=== PATIENT | female | born 1945 | race American Indian/Alaskan Native ===

== ENCOUNTER 2017-04-10 17:17 | Emergency (ER) | payer MEDICARE, OTHER ==
[2017-04-10 18:26] LABS: Basophils % (Auto) 0.6 % (0.0-1.8); Eosinophils % (Auto) 0.3 % (0.0-4.3); Hemoglobin 13.3 gm/dl (10.1-14.3); Lymphocytes # (Auto) 2.1 K/mm3 (1.2-5.4); Lymphocytes % (Auto) 30.8 % (13.4-35.0); Mean Corpuscular HGB Conc 33 % (30-34); Mean Corpuscular Hemoglobin 29 pg (28-32); Mean Corpuscular Volume 88 fl (79-97); Monocytes # (Auto) 0.9 K/mm3 (0.0-0.8); Monocytes % (Auto) 13.1 % (0.0-7.3); Red Blood Count 4.64 M/mm3 (3.65-5.03); Red Cell Distribution Width 16.8 % (13.2-15.2)
[2017-04-10 18:31] LABS: Platelet Count 235 K/mm3 (140-440)
[2017-04-10 18:45] LABS: BUN/Creatinine Ratio 18; Blood Urea Nitrogen 16 mg/dL (7-17); Calcium 8.6 mg/dL (8.4-10.2); Hemolysis Index 106
[2017-04-10 23:04] LABS: Bilirubin,Urine NEG (Negative); Blood,Urine NEG (Negative); Color,Urine Yellow (Yellow); Hyaline Casts,Urine 1 /LPF; Mucus,Urine FEW /HPF; Nitrite,Urine NEG (Negative); Protein,Urine <15 mg/dL mg/dL (Negative)
[2017-04-11 01:46] VITALS: BP 171/79
--- NOTE | 2017-04-11 02:09 | Emergency Department Report ---
ED General Adult HPI - General Chief complaint: Weakness Stated complaint: HTN, HYPOGLYCEMIA Time Seen by Provider: 04/11/17 01:57 Source: patient Mode of arrival: Ambulatory Limitations: No Limitations - History of Present Illness Initial comments: Patient is 72 years old female history of hypertension, diabetes, arthritis and migraine. Patient came today complaining of generalized weakness and having trouble controlling her blood sugar on her blood pressure. Patient also stated that she's been having a headache which is similar to her regular migraine. Patient denied any chest pain, shortness of breath, nausea or vomiting. No abdominal pain or diarrhea. -: Gradual - Related Data Allergies Allergy/AdvReac Type Severity Reaction Status Date / Time acetaminophen [From Percocet] Allergy Rash Verified 04/10/17 17:34 oxycodone Allergy Rash Verified 04/10/17 17:34 ED Review of Systems ROS: Stated complaint: HTN, HYPOGLYCEMIA Other details as noted in HPI Comment: All other systems reviewed and negative Constitutional: denies: chills, fever ENT: denies: ear pain, throat pain Respiratory: denies: cough, orthopnea, shortness of breath, SOB with exertion, SOB at rest Cardiovascular: denies: chest pain, palpitations, dyspnea on exertion, orthopnea , edema, syncope Gastrointestinal: denies: abdominal pain, nausea, vomiting, diarrhea, constipation, hematemesis, melena, hematochezia Genitourinary: denies: urgency, dysuria, frequency, hematuria, discharge Neurological: headache, weakness. denies: numbness, paresthesias, confusion, abnormal gait, vertigo ED Past Medical Hx - Past Medical History Previous Medical History?: Yes Hx Hypertension: Yes Hx Diabetes: Yes (type 2) - Surgical History Past Surgical History?: Yes Additional Surgical History: back, cervical, knee - Social History Smoking Status: Never Smoker Substance Use Type: Alcohol ED Physical Exam - General Limitations: No Limitations General appearance: alert, in no apparent distress, other (patient is sitting in bed in no acute distress using her Ipad.) - Head Head exam: Present: atraumatic, normocephalic, normal inspection - Eye Eye exam: Present: normal appearance, PERRL Pupils: Present: normal accommodation - ENT ENT exam: Present: normal exam, normal orophraynx, mucous membranes moist, normal external ear exam - Neck Neck exam: Present: normal inspection, full ROM. Absent: tenderness, meningismus, lymphadenopathy, thyromegaly - Respiratory Respiratory exam: Present: normal lung sounds bilaterally. Absent: respiratory distress, wheezes, rales, rhonchi, stridor, chest wall tenderness, accessory muscle use, decreased breath sounds, prolonged expiratory - Cardiovascular Cardiovascular Exam: Present: regular rate, normal rhythm, normal heart sounds - GI/Abdominal GI/Abdominal exam: Present: soft, normal bowel sounds. Absent: distended, tenderness, guarding, rebound, rigid, organomegaly, mass, bruit, pulsatile mass , hernia - Extremities Exam Extremities exam: Present: normal inspection, full ROM. Absent: tenderness, normal capillary refill, pedal edema, joint swelling, calf tenderness - Back Exam Back exam: Present: normal inspection, full ROM. Absent: CVA tenderness (R), CVA tenderness (L), muscle spasm, paraspinal tenderness, vertebral tenderness, rash noted - Neurological Exam Neurological exam: Present: alert, oriented X3, CN II-XII intact, normal gait, reflexes normal. Absent: motor sensory deficit - Skin Skin exam: Present: warm, intact, normal color. Absent: cyanosis, diaphoretic, erythema, urticaria ED Course Vital Signs 04/10/17 04/10/17 04/11/17 17:35 21:25 01:45 Temperature 97.9 F 98.2 F Pulse Rate 65 64 56 L Respiratory 16 16 16 Rate Blood Pressure 153/85 Blood Pressure 173/70 171/79 [Left] O2 Sat by Pulse 99 96 99 Oximetry - Reevaluation(s) Reevaluation #1: 04/11/17 03:55 Patient stated that she is feeling much better. Her symptoms completely resolved. I educated the patient and her family about causes of low blood sugar and and the need to eat a balanced diet. I advised patient to follow up with her primary care physician in the next 2-3 days and to return to the ER if her symptoms return. ED Medical Decision Making - Lab Data Result diagrams: 04/10/17 18:15 04/10/17 18:15 - EKG Data -: EKG Interpreted by Me EKG shows normal: sinus rhythm Rate: bradycardia - EKG Data Interpretation: no acute changes Critical care attestation.: If time is entered above; I have spent that time in minutes in the direct care of this critically ill patient, excluding procedure time. ED Disposition Clinical Impression: Weakness, Hypoglycemia Disposition: DC-01 TO HOME OR SELFCARE Is pt being admited?: No Condition: Stable Instructions: Diabetic Hypoglycemia (ED) Referrals: KENNEDY ALICIA MD [Primary Care Provider] - 3-5 Days
== END 2017-04-11 04:04 | disposition home or self-care (01) ==
LOC: ED 17:17
DX: E11.649 Type 2 diabetes mellitus with hypoglycemia without coma (principal); I10 Essential (primary) hypertension; Z88.6 Allergy status to analgesic agent
CPT/HCPCS: 36415; 80048; 81001; 82962; 84484; 85025; 93005; 93010; 99284